=== PATIENT | male | born 1980 | race Two or more races ===

== ENCOUNTER 2021-01-17 16:13 | Emergency (ER) | payer MEDICAID ==
[~2021-01-17] VITALS: Ht 157.5 cm; Wt 59.0 kg
[2021-01-17 16:40] LABS: Basophils # (auto) 0.1 10 ^3/uL (0-0.2); Basophils % (auto) 0.8 % (0.0-2.0); Eosinophils # (auto) 0.1 10 ^3/uL (0-0.8); Eosinophils % (auto) 0.9 % (0.0-7.0); Hematocrit 47.4 % (41.0-53.0); Hemoglobin 15.9 g/dL (13.5-17.5); Lymphocytes # (auto) 3.6 10 ^3/uL (0.4-5.4); Lymphocytes % (auto) 30.1 % (10.0-50.0); Mean Corpuscular Hemoglobin 28.6 pg (28.0-32.0); Mean Corpuscular Hgb Conc. 33.5 g/dL (32.0-36.0); Mean Corpuscular Volume 85.3 fL (80.0-100.0); Monocytes # (auto) 0.7 10 ^3/uL (0-1.3); Monocytes % (auto) 5.5 % (0.0-12.0); Neutrophils # (auto) 7.5 10 ^3/uL (1.6-8.6); Neutrophils % (auto) 62.7 % (37.0-80.0); Nucleated Red Blood Cells % 0.1 %; Red Blood Cells 5.56 10^6/uL (4.5-5.90); Red Cell Distribution Width 13.2 % (11.8-14.3)
[2021-01-17] MEDS ORDERED: TETANUS-DIPTH-ACEL PERTUSSIS 0.5ML SYR Tdap IM ONE (16:45)
[2021-01-17] MEDS ORDERED: BACITRACIN TOP OINT 1 UD PKG TOP ONE (16:45)
[2021-01-17] MEDS ORDERED: LIDOCAINE 2%HCL (LOCAL ANESTH.) INJ 20ML MDV ID ONE (16:45)
[2021-01-17 16:59] LABS: Albumin 3.3 g/dL (3.4-5.0); BUN/Creatinine Ratio 6.2; Calcium 8.1 mg/dL (8.5-10.1); Potassium 5.3 mmol/L (3.5-5.1)
[2021-01-17 17:02] LABS: Bilirubin, Total 0.4 mg/dL (0.2-1.0); Total Protein 6.8 g/dL (6.4-8.2)
[2021-01-17 18:02] VITALS: BP 122/64
[2021-01-17 19:00] LABS: Amphetamine Screen, Urine POSITIVE (NEGATIVE); Barbiturate Scree,Urine NEGATIVE (NEGATIVE); Benzodiazephine Screen, Urine NEGATIVE (NEGATIVE); Cannabinoid Screen, Urine POSITIVE (NEGATIVE); Cocaine Screen, Urine NEGATIVE (NEGATIVE); Opiate Scree,Urine NEGATIVE (NEGATIVE); Phencyclidine Screen, Urine POSITIVE (NEGATIVE)
[2021-01-17 19:23] LABS: Urine Bacteria NONE SEEN /hpf (None Seen); Urine Blood Negative /uL (Negative); Urine Hyaline Cast FEW /lpf (0 - 2); Urine Mucus FEW (None Seen); Urine Specific Gravity 1.012 (1.001-1.035); Urine WBC 1 /hpf (0 - 3)
== END 2021-01-17 18:42 | disposition home or self-care (01) ==
LOC: EDBD 16:13 → ER 16:13
DX: S02.85XA Fracture of orbit, unspecified, initial encounter for closed fracture (principal); S01.111A Laceration without foreign body of right eyelid and periocular area, initial encounter; N18.30 Chronic kidney disease, stage 3 unspecified; E44.1 Mild protein-calorie malnutrition; F10.129 Alcohol abuse with intoxication, unspecified; Z68.23 Body mass index [BMI] 23.0-23.9, adult; W18.39XA Other fall on same level, initial encounter; Y93.89 Activity, other specified; Y92.89 Other specified places as the place of occurrence of the external cause; Y99.8 Other external cause status; Y90.8 Blood alcohol level of 240 mg/100 ml or more
CPT/HCPCS: 12013; 36415; 70450; 72125; 80053; 80307; 80320; 81001; 85025; 90471; 90715

== ENCOUNTER 2021-09-24 12:52 | Emergency (ER) | payer MEDICAID ==
[~2021-09-24] VITALS: Ht 157.5 cm; Wt 68.0 kg
[2021-09-24 14:08] VITALS: BP 135/87
[2021-09-24] MEDS ORDERED: IBUP800T27 PO (15:23)
== END 2021-09-24 15:26 | disposition home or self-care (01) ==
LOC: ER 12:52
DX: G44.209 Tension-type headache, unspecified, not intractable (principal); Z79.1 Long term (current) use of non-steroidal anti-inflammatories (NSAID)
CPT/HCPCS: 70450

== ENCOUNTER 2023-10-23 06:14 | Emergency (ER) | payer BC, MEDICAID ==
[~2023-10-23] VITALS: Ht 157.5 cm; Wt 72.0 kg
[~2023-10-23 06:14] MED LIST: IBUP-1456 PO
[2023-10-23 07:33] VITALS: BP 124/80; PULSE 98; RESP 18; TEMP 98.2; O2SAT 98
[2023-10-23] MEDS ORDERED: AMOX500T3 PO (07:44)
== END 2023-10-23 08:52 | disposition home or self-care (01) ==
LOC: ER 06:14
DX: K02.9 Dental caries, unspecified (principal); Z79.2 Long term (current) use of antibiotics; Z79.1 Long term (current) use of non-steroidal anti-inflammatories (NSAID)

== ENCOUNTER 2024-02-06 18:30 | Emergency (ER) | payer BC, MEDICAID ==
[~2024-02-06] VITALS: Ht 157.5 cm; Wt 74.3 kg
[~2024-02-06 18:30] MED LIST changes: +AMOX500T3 PO
[2024-02-06 18:40] VITALS: BP 130/78; PULSE 64; RESP 16; TEMP 98.9; O2SAT 97
[2024-02-06] MEDS ORDERED: IBUP-1456 PO (21:50)
[2024-02-06] MEDS: KETOROLAC TROMETH 60MG/2ML VIAL IM ONE (22:09)
== END 2024-02-06 22:08 | disposition home or self-care (01) ==
LOC: ER 18:30
DX: S22.31XA Fracture of one rib, right side, initial encounter for closed fracture (principal); Z79.1 Long term (current) use of non-steroidal anti-inflammatories (NSAID); W18.09XA Striking against other object with subsequent fall, initial encounter; Y93.89 Activity, other specified; Y92.89 Other specified places as the place of occurrence of the external cause; Y99.8 Other external cause status
CPT/HCPCS: 71250; 96372; 99285; J1885

== ENCOUNTER 2024-03-27 07:18 | Emergency (ER) | payer BC, MEDICAID ==
[~2024-03-27] VITALS: Ht 157.5 cm; Wt 74.0 kg
[2024-03-27 07:57] VITALS: BP 135/89; PULSE 127; RESP 16; TEMP 97.8; O2SAT 97
[2024-03-27] MEDS ORDERED: BACL10TA PO (08:20)
[2024-03-27] MEDS ORDERED: IBUP-1456 PO (08:20)
== END 2024-03-27 08:28 | disposition home or self-care (01) ==
LOC: ER 07:18
DX: S29.011A Strain of muscle and tendon of front wall of thorax, initial encounter (principal); Z79.899 Other long term (current) drug therapy; W22.8XXA Striking against or struck by other objects, initial encounter; Y93.89 Activity, other specified; Y92.89 Other specified places as the place of occurrence of the external cause; Y99.8 Other external cause status
CPT/HCPCS: 71101

== ENCOUNTER 2024-05-25 10:41 | Emergency (ER) | payer BC, MEDICAID ==
[~2024-05-25 10:41] MED LIST changes: +BACL10TA PO
--- NOTE | 2024-05-25 12:06 | ED.PDOC ---
History of Present Illness HPI Comments 44y M who presents to the ED for chief complaint of tooth pain. Pt states he has been having tooth and jaw pain for the past 2 weeks and saw his dentist and states he was given penicillin for tooth infection. Pt states he has been taking his penicillin and states he finished his course of antibiotics but states he is still having throbbing pain by his jaw. Pt states he has been taking Tylenol but states after the effects of Tylenol wear off, pt states his pain has returned and came to the ED for further evaluation. Pt in the ED, states his pain is 10/10, constant, with no associated relieving factors. Pt otherwise denies any other symptoms at this time. Chief Complaint: Tooth Pain Time Seen by MD: 12:02 Primary Care Provider: LAURA Meek Notes: Medications, Allergies Allergies: Coded Allergies: NO KNOWN ALLERGIES (Unverified , 03/09/12) Home Meds Active Scripts Baclofen (Baclofen) 10 Mg Tab, 10 MG PO BID, #20 TAB Prov:MACKENZIE CADET 03/27/24 Ibuprofen (Ibuprofen) 800 Mg Tab, 1 TAB PO TID, #30 TAB Prov:MACKENZIE CADET 03/27/24 Ibuprofen (Ibuprofen) 800 Mg Tab, 1 TAB PO TID PRN, #30 TAB 0 Refills Prov:ECHO TIRADO 02/06/24 Amoxicillin Trihydrate (Amoxicillin) 500 Mg Tab, 1 TAB PO BID for 10 Days, #20 TAB 0 Refills Prov:DEZ OSEGUERA NP 10/23/23 Ibuprofen (Ibuprofen) 800 Mg Tab, 800 MG PO Q8HP PRN for 10 Days, #30 TAB Prov:MACKENZIE CADET 09/24/21 Information Source: Patient Mode of Arrival: Ambulatory Past Medical History PAST MEDICAL HISTORY: Denies Surgical History: Denies all surgeries Family History Family History: Reviewed,noncontributory to illness Social History Smoker: Non-Smoker Alcohol: Occasionally Drugs: Denies Drug Use Lives In: Home Constitutional: denies: chills, diaphoresis, fatigue, fever, malaise, sweats, weakness, others EENTM: reports: others (tooth and jaw pain); denies: blurred vision, double vision, ear bleeding, ear discharge, ear drainage, ear pain, ear ringing, eye pain, eye redness, hearing loss, mouth pain, mouth swelling, nasal discharge, nose bleeding, nose congestion, nose pain, photophobia, tearing, throat pain, throat swelling, voice changes Respiratory: denies: cough, hemoptysis, orthopnea, SOB at rest, shortness of breath, SOB with excertion, stridor, wheezing, others Cardiovascular: denies: chest pain, dizzy spells, diaphoresis, Dyspnea on exertion, edema, irregular heart beat, left arm pain, lightheadedness, palpitations, PND, syncope, others Gastrointestinal: denies: abdomen distended, abdominal pain, blood streaked bowels, constipated, diarrhea, dysphagia, difficulty swallowing, hematemesis, melena, nausea, poor appetite, poor fluid intake, rectal bleeding, rectal pain, vomiting, others Neurological: denies: dizziness, fainting, headache, left sided numbness, left sided weakness, numbness, paresthesia, pre-existing deficit, right sided numbness, right sided weakness, seizure, speech problems, tingling, tremors, weakness, others Musculoskeletal: denies: back pain, gout, joint pain, joint swelling, muscle pain, muscle stiffness, neck pain, others Integumetry: denies: bruises, change in color, change in hair/nails, dryness, laceration, lesions, lumps, rash, wounds, others Allergic/Immunocompromised: denies: Difficulty Healing, Frequent Infections, Hives, Itching, others Hematologic/Lymphatic: denies: anemia, blood clots, easy bleeding, easy bruising, swollen glands, others Endocrine: denies: excessive hunger, excessive sweating, excessive thirst, excessive urination, flushing, intolerance to cold, intolerance to heat, unexplained weight gain, unexplained weight loss, others Psychiatric: denies: anxiety, bipolar disorder, depression, hopeless, panic disorder, schizophrenia, sleepless, suicidal, others All Other Systems: Reviewed and Negative Physical Exam General Appearance: No Apparent Distress, Normal HEENT: Normal ENT Inspection, Pharynx Normal, TMs Normal Neck: Full Range of Motion, Non-Tender, Normal, Normal Inspection Respiratory: Chest Non-Tender, Lungs Clear, No Accessory Muscle Use, No Respiratory Distress, Normal Breath Sounds Cardiovascular: No Edema, No JVD, No Murmur, No Gallop, Normal Peripheral Pulses, Regular Rate/Rhythm Breast Exam: Deferred Gastrointestinal: No Organomegaly, Non Tender, No Pulsatile Mass, Normal Bowel Sounds, Soft Genitalia: Deferred Pelvic: Deferred Rectal: Deferred Extremities: No calf tenderness, Normal capillary refill, Normal inspection, Normal range of motion, Non-tender, No pedal edema Musculoskeletal : Apperance: Normal Neurologic: Alert, triple air valve tester II-XII nml as Tested, No Motor Deficits, Normal Affect, Normal Mood, No Sensory Deficits Cerebellar Function: Normal Reflexes: Normal Skin: Dry, Normal Color, Warm Lymphatic: No Adenopathy Was a procedure done? Was a procedure done?: No Differential Dx Considerations may include: dental caries, gingivitis, dental abscess X-Ray, Labs, Meds, VS Vital Signs Date Time Temp Pulse Resp B/P (MAP) Pulse Ox O2 Delivery O2 Flow Rate FiO2 05/25/24 11:41 98.7 61 18 150/82 (104) 100 Time of 1ST Reevaluation: 12:35 Reevaluation 1ST: Unchanged Patient Education/Counseling: Diagnosis, Treatment Family Education/Counseling: No Family Present Additional Information pt had: no external notes in prior notes, no tests were ordered in the ED, independent historians: none interpreted results: none results and treatments performed in the ED were discussed with: none pt is reporting gingival swellng and pain, which responded to antibiotic, but he feels after the antibiotic is done,he has increasing symptoms again. he does follow up with his dentist. although i do not appreciate any swelling or lesions, he may have partially treated gingivitis. i iwll start him on clindamycin Departure 1 Departure Time of Disposition: 12:38 Impression: Primary Impression: Gingivitis Disposition: HOME / SELF CARE / HOMELESS Condition: Good e-Prescriptions Clindamycin Hcl (Clindamycin Hcl) 300 Mg Cap 1 CAP PO TID for 7 Days, #21 CAP Prov: DAPHNE QURESHI MD 05/25/24 Critical Care Note Critical Care Time?: No Stability Stability form required: No Heart Score Heart Score: Heart Score Response (Comments) Value History N/A 0 EKG N/A 0 Age N/A 0 Risk Factors N/A 0 Troponin N/A 0 Total 0 I personally scribed for DAPHNE QURESHI MD ([facility]) on 05/25/24 at 12:06. Electronically submitted by Thomas SAUNDERS). DAPHNE QURESHI MD May 25, 2024 12:06
[2024-05-25] MEDS ORDERED: CLIN1CAP70 PO (12:38)
[2024-05-25 13:10] VITALS: BP 140/90; PULSE 60; RESP 16; TEMP 97.8; O2SAT 98
== END 2024-05-25 13:16 | disposition home or self-care (01) ==
LOC: ER 10:41
DX: K05.10 Chronic gingivitis, plaque induced (principal); Z79.899 Other long term (current) drug therapy; Z79.1 Long term (current) use of non-steroidal anti-inflammatories (NSAID); Z79.2 Long term (current) use of antibiotics